=== PATIENT | female | born 2000 | race Hispanic/Latino ===

== ENCOUNTER 2019-06-20 14:22 | Emergency (ER) | payer OTHER ==
--- OUTSIDE RECORDS SUMMARY | 2019-06-20 14:23 | XMS REPORT ---
:2000 [facility] Address [address] [place] [address] Dr. Dos Santos [address] [place] [id number] Care Team Providers Name Role Phone Unavailable Unavailable Unavailable Problems This patient has no known problems. Allergies, Adverse Reactions, Alerts This patient has no known allergies or adverse reactions. Medications This patient has no known medications.
[2019-06-20] MEDS ORDERED: ONDANSETRON 4 MG/2 ML VIAL ONE (16:14)
[2019-06-20 16:21] LABS: Absolute Lymphocytes (CBC) 2.3 K/uL (0.7-4.9); Basophils % 0.6 % (0-1.3); Hematocrit 40.1 % (36.0-45.0); Lymphocytes % 26.8 % (15.3-44.8); MPV 8.7 fL (7.6-11.3); RBC Red Blood Cell Count 4.38 M/uL (3.86-4.86)
[2019-06-20 16:28] LABS: Urine Blood NEGATIVE (NEG); Urine Glucose NEGATIVE (NEG); Urine Protein NEGATIVE (NEG); Urine Specific Gravity 1.025 (1.005-1.030)
[2019-06-20 16:37] LABS: BUN Blood Urea Nitrogen 10 mg/dL (7-18); Bicarbonate 28 mmol/L (21-32); Glucose Level 73 mg/dL (74-106); Potassium 3.5 mmol/L (3.5-5.1); Sodium Level 138 mmol/L (136-145)
[2019-06-20 16:44] LABS: HCG, Quantitative < 1 mIU/mL (1-3)
--- NOTE | 2019-06-20 17:47 | RAD REPORT ---
EXAM DESCRIPTION: CT - Abdomen Pelvis W Contrast - 06/20/2019 5:16 pm CLINICAL HISTORY: Abdominal pain COMPARISON: December 2017 TECHNIQUE: Computed axial tomography of the abdomen pelvis was obtained. 100 cc Isovue-300 was admin istered intravenously. Oral contrast was not requested which limits evaluation of bowel. All CT scans are performed using dose optimization technique as appropriate and may include automated exposure control or mA/KV adjustment according to patient size. FINDINGS: Fatty liver Spleen, pancreas, adrenal and left kidney appear unremarkable. 2 millimeter nonobstructing right regina l calculus There is no evidence of diverticulitis. 5.5 centimeter right ovarian cyst with a small amount of free fluid IMPRESSION: 5.5 centimeter right ovarian cyst with a small amount of free fluid . Follow up ultrasou nd in 6 weeks recommended to assess stability/resolution
--- NOTE | 2019-06-20 18:58 | EDPHYS ---
Physician Documentation [facility] Name: Lalita Gonzalez Age: 18 yrs Sex: Female : 2000 Arrival Date: 06/20/2019 Time: 14:25 Bed 11 Private MD: ED Physician Ever Hoover HPI: 06/21 01:31 This 18 yrs old Female presents to ER via Ambulatory with complaints of kb Abdominal Pain. 01:31 The patient presents with abdominal pain right lower quadrant. Onset: The kb symptoms/episode began/occurred 5 day(s) ago. The symptoms do not radiate. Associated signs and symptoms: Pertinent positives: breast tenderness. The symptoms are described as constant. Modifying factors: The symptoms are alleviated by nothing, the symptoms are aggravated by nothing. Severity of pain: At its worst the pain was moderate in the emergency department the pain is unchanged. The patient has not experienced similar symptoms in the past. The patient has been recently seen by a physician: the patient's primary care provider, with similar presenting complaints, and was sent to the [facility] Emergency Department for further evaluation. Pt reports RLQ pain that started 5 days ago. States she was going to see if it would just go away, but it didn't so she went to her dr. States her Dr sent her here because he said it was either her appendix or . 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 - Social history:: Smoking status: Patient/guardian denies using tobacco. - Ebola Screening: : No symptoms or risks identified at this time. ROS: 06/21 01:31 Constitutional: Negative for fever, chills, and weight loss, ENT: Negative for injury, kb pain, and discharge, Neck: Negative for injury, pain, and swelling, Cardiovascular: Negative for chest pain, palpitations, and edema, Respiratory: Negative for shortness of breath, cough, wheezing, and pleuritic chest pain, Back: Negative for injury and pain, : Negative for injury, bleeding, discharge, and swelling, MS/Extremity: Negative for injury and deformity, Skin: Negative for injury, rash, and discoloration, Neuro: Negative for headache, weakness, numbness, tingling, and seizure. Abdomen/GI: Positive for abdominal pain. Exam: :31 Constitutional: This is a well developed, well nourished patient who is awake, alert, kb and in no acute distress. Head/Face: Normocephalic, atraumatic. Neck: Trachea midline, no thyromegaly or masses palpated, and no cervical lymphadenopathy. Supple, full range of motion without nuchal rigidity, or vertebral point tenderness. No Meningismus. Chest/axilla: Normal chest wall appearance and motion. Nontender with no deformity. No lesions are appreciated. Cardiovascular: Regular rate and rhythm with a normal S1 and S2. No gallops, murmurs, or rubs. Normal PMI, no JVD. No pulse deficits. Respiratory: Lungs have equal breath sounds bilaterally, clear to auscultation and percussion. No rales, rhonchi or wheezes noted. No increased work of breathing, no retractions or nasal flaring. Back: No spinal tenderness. No costovertebral tenderness. Full range of motion. Skin: Warm, dry with normal turgor. Normal color with no rashes, no lesions, and no evidence of cellulitis. MS/ Extremity: Pulses equal, no cyanosis. Neurovascular intact. Full, normal range of motion. Neuro: Awake and alert, GCS 15, oriented to person, place, time, and situation. Cranial nerves II-XII grossly intact. Motor strength 5/5 in all extremities. Sensory grossly intact. Cerebellar exam normal. Normal gait. :31 Abdomen/GI: Inspection: abdomen appears normal, Bowel sounds: normal, in all quadrants, Palpation: soft, in all quadrants, moderate abdominal tenderness, in the right lower quadrant and left lower quadrant. Vital Signs: 06/20 14:42 BP 140 / 77; Pulse 87; Resp 16; Temp 98.5; Pulse Ox 99% on R/A; Weight 65.77 kg; Height hb 5 ft. 1 in. (154.94 cm); Pain 8/10; 15:33 BP 139 / 89; Pulse 95; Resp 18; Pulse Ox 100% on R/A; aj1 19:32 BP 122 / 78; Pulse 70; Resp 16; Pulse Ox 99% on R/A; aj1 14:42 Body Mass Index 27.40 (65.77 kg, 154.94 cm) hb MDM: 15:23 Patient medically screened. kb 06/21 01:33 Data reviewed: vital signs, nurses notes. Data interpreted: Pulse oximetry: on room air kb is 99 %. Interpretation: normal. Counseling: I had a detailed discussion with the patient and/or guardian regarding: the historical points, exam findings, and any diagnostic results supporting the discharge/admit diagnosis, lab results, radiology results, the need for outpatient follow up, an OB/Gyne specialist, to return to the emergency department if symptoms worsen or persist or if there are any questions or concerns that arise at home. 06/20 15:46 Order name: Basic Metabolic Panel; Complete Time: 16:49 kb 06/20 15:46 Order name: CBC with Diff; Complete Time: 16:31 kb 06/20 15:46 Order name: Quantitative Hcg; Complete Time: 16:49 kb 06/20 16:08 Order name: Urine Dipstick--Ancillary (enter results); Complete Time: 16:31 bd 06/20 16:08 Order name: Urine --Ancillary (enter results); Complete Time: 16:31 bd 06/20 16:49 Order name: CT Abd/Pelvis - IV Contrast Only; Complete Time: 17:49 kb 06/20 15:38 Order name: Urine Dipstick-Ancillary (obtain specimen); Complete Time: 15:48 kb 06/20 15:38 Order name: Urine Test (obtain specimen); Complete Time: 15:48 kb 06/20 15:46 Order name: IV Saline Lock; Complete Time: 16:28 kb 06/20 15:46 Order name: Labs collected and sent; Complete Time: 16:28 kb Administered Medications: No medications were administered Disposition: 07:57 Co-signature as Attending Physician, Ever Hoover MD I agree with the assessment and wa plan of care. Disposition: 06/20/19 18:50 Discharged to Home. Impression: Other ovarian cysts. - Condition is Stable. - Discharge Instructions: Ovarian Cyst, [id number]. - Prescriptions for Diclofenac Sodium 75 mg Oral Tablet, Delayed Release (E.C.) - take 1 tablet by ORAL route 2 times per day As needed; 30 tablet. - Medication Reconciliation Form, Thank You Letter, Antibiotic Education, Prescription Opioid Use form. - Follow up: Emergency Department; When: As needed; Reason: Worsening of condition. Follow up: Private Physician; When: 2 - 3 days; Reason: Recheck today's complaints, Continuance of care, Re-evaluation by your physician. Signatures: Dispatcher [employer] EDMS Sachi Fuentes, FATIMAH OAKLEY-Evelyne Perales RN RN aj1 Narcisa Briceño RN RN Ever Hoover MD MD in Corrections: (The following items were deleted from the chart) 06/20 19:33 18:50 06/20/2019 18:50 Discharged to Home. Impression: Other ovarian cysts. Condition aj1 is Stable. Forms are Medication Reconciliation Form, Thank You Letter, Antibiotic Education, Prescription Opioid Use. Follow up: Emergency Department; When: As needed; Reason: Worsening of condition. Follow up: Private Physician; When: 2 - 3 days; Reason: Recheck today's complaints, Continuance of care, Re-evaluation by your physician. kb
--- NOTE | 2019-06-20 18:58 | ER ---
Nurse's Notes [facility] Name: Lalita Gonzalez Age: 18 yrs Sex: Female : 2000 Arrival Date: 06/20/2019 Time: 14:25 Bed 11 Private MD: Diagnosis: Other ovarian cysts Presentation: 06/20 14:40 Presenting complaint: Abdominal pain x 5 days. Pt report pain started in the RLQ, now hb pain is diffuse. Denies N/V/D/fever. LMP 05/31. Transition of care: patient was not received from another setting of care. Onset of symptoms was June 16, 2019. Risk Assessment: Do you want to hurt yourself or someone else? Patient reports no desire to harm self or others. Initial Sepsis Screen: Does the patient meet any 2 criteria? No. Patient's initial sepsis screen is negative. Does the patient have a suspected source of infection? No. Patient's initial sepsis screen is negative. Care prior to arrival: None. 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 - Social history:: Smoking status: Patient/guardian denies using tobacco. - Ebola Screening: : No symptoms or risks identified at this time. Screenin:33 Abuse screen: Denies threats or abuse. Denies injuries from another. Nutritional aj1 screening: No deficits noted. Tuberculosis screening: No symptoms or risk factors identified. 19:33 Fall Risk None identified. aj1 Assessment: 15:33 General: Appears in no apparent distress. comfortable, Behavior is calm, cooperative, aj1 appropriate for age. Pain: Complains of pain in right lower quadrant Pain does not radiate. Pain currently is 7 out of 10 on a pain scale. Neuro: Level of Consciousness is awake, alert, obeys commands, Oriented to person, place, time, situation. Cardiovascular: Patient's skin is warm and dry. Respiratory: Airway is patent Respiratory effort is even, unlabored, Respiratory pattern is regular, symmetrical. GI: Abdomen is non-distended, Bowel sounds present X 4 quads. Abd is soft X 4 quads Abdomen is tender to palpation in right lower quadrant. : No signs and/or symptoms were reported regarding the genitourinary system. EENT: No signs and/or symptoms were reported regarding the EENT system. Derm: No signs and/or symptoms reported regarding the dermatologic system. Skin is pink, warm \T\ dry. normal. Musculoskeletal: No signs and/or symptoms reported regarding the musculoskeletal system. Circulation, motion, and sensation intact. 16:37 Reassessment: Patient appears in no apparent distress at this time. No changes from aj1 previously documented assessment. Patient and/or family updated on plan of care and expected duration. Pain level reassessed. Patient is alert, oriented x 3, equal unlabored respirations, skin warm/dry/pink. 17:30 Reassessment: Patient and/or family updated on plan of care and expected duration. Pain aj1 level reassessed. General: Appears in no apparent distress. comfortable, Behavior is calm, cooperative, appropriate for age. Neuro: Level of Consciousness is awake, alert, obeys commands, Oriented to person, place, time, situation. Cardiovascular: Patient's skin is warm and dry. Respiratory: Airway is patent Respiratory effort is even, unlabored, Respiratory pattern is regular, symmetrical. GI: Abdomen is flat, non-distended. Derm: No signs and/or symptoms reported regarding the dermatologic system. Skin is pink, warm \T\ dry. normal. Musculoskeletal: No signs and/or symptoms reported regarding the musculoskeletal system. Circulation, motion, and sensation intact. 18:15 Reassessment: Patient appears in no apparent distress at this time. No changes from aj1 previously documented assessment. Patient and/or family updated on plan of care and expected duration. Pain level reassessed. Patient is alert, oriented x 3, equal unlabored respirations, skin warm/dry/pink. 19:31 Reassessment: Patient appears in no apparent distress at this time. No changes from aj1 previously documented assessment. Patient and/or family updated on plan of care and expected duration. Pain level reassessed. Patient is alert, oriented x 3, equal unlabored respirations, skin warm/dry/pink. Vital Signs: 14:42 BP 140 / 77; Pulse 87; Resp 16; Temp 98.5; Pulse Ox 99% on R/A; Weight 65.77 kg; Height hb 5 ft. 1 in. (154.94 cm); Pain 8/10; 15:33 BP 139 / 89; Pulse 95; Resp 18; Pulse Ox 100% on R/A; aj1 19:32 BP 122 / 78; Pulse 70; Resp 16; Pulse Ox 99% on R/A; aj1 14:42 Body Mass Index 27.40 (65.77 kg, 154.94 cm) hb ED Course: 14:25 Patient arrived in ED. mr 14:42 Triage completed. hb 14:43 Arm band placed on. hb 15:22 Sachi Fuentes FNP-C is PHCP. kb 15:22 Ever Hoover MD is Attending Physician. kb 15:33 Evelyne Bonds, RN is Primary Nurse. aj1 15:33 Patient has correct armband on for positive identification. aj1 15:33 No provider procedures requiring assistance completed. aj1 16:28 Initial lab(s) drawn, by me, sent to lab. Inserted saline lock: 22 gauge in left aj1 antecubital area, using aseptic technique. Blood collected. 17:13 CT completed. Patient tolerated procedure well. Patient moved to CT. Patient moved back me from CT. 17:17 CT Abd/Pelvis - IV Contrast Only In Process Unspecified. EDMS 19:32 IV discontinued, intact, bleeding controlled, No redness/swelling at site. Pressure aj1 dressing applied. Administered Medications: No medications were administered Outcome: 18:50 Discharge ordered by MD. kb 19:32 Discharged to home ambulatory. aj1 19:32 Condition: good 19:32 Discharge instructions given to patient, Instructed on discharge instructions, follow up and referral plans. medication usage, Demonstrated understanding of instructions, follow-up care, medications, Prescriptions given X 1. 19:33 Patient left the ED. aj1 Signatures: Dispatcher [employer] EDMS Sachi Fuentes FNP-C FNP-Evelyne Perales, RN RN [facility] Maria De Jesus Benavides Narcisa Briceño RN RN Davidson Leyva Corrections: (The following items were deleted from the chart) 14:43 14:40 Presenting complaint: Abdominal pain x 5 days. Pt report pain started in the RLQ, hb now pain is diffuse. Denies N/V/D/fever. LMP 05/01 hb 15:37 15:33 Pain: Complains of pain in left lower quadrant Pain does not radiate. Pain aj1 currently is 7 out of 10 on a pain scale. aj1 15:37 15:33 GI: Abdomen is non-distended, Bowel sounds present X 4 quads. Abd is soft X 4 aj1 quads Abdomen is tender to palpation in left lower quadrant aj1
== END 2019-06-20 19:33 | disposition home or self-care (01) ==
LOC: ER 14:22
DX: N83.299 Other ovarian cyst, unspecified side (principal)
CPT/HCPCS: 85025; 80048; 36415; 81025; 84702; 81003; 74177; 99284; Q9967; J2405

== ENCOUNTER 2019-12-31 17:27 | Emergency (ER) | payer OTHER, SELFPAY ==
--- OUTSIDE RECORDS SUMMARY | 2019-12-31 17:29 | XMS REPORT ---
:2000 [facility] Address [address] [place] [address] Dr. Dos Santos [address] [place] [id number] Care Team Providers Name Role Phone Unavailable Unavailable Unavailable Problems This patient has no known problems. Allergies, Adverse Reactions, Alerts This patient has no known allergies or adverse reactions. Medications This patient has no known medications.
--- NOTE | 2019-12-31 19:07 | ER ---
Nurse's Notes [facility] Name: Lalita Gonzalez Age: 19 yrs Sex: Female : 2000 Arrival Date: 12/31/2019 Time: 17:30 Bed 18 Private MD: Ever Oro E Diagnosis: Acute laryngitis Presentation: 12/31 17:51 Presenting complaint: Patient states: Sore throat, ear pain, body aches, and fever aj1 since Thursday. Transition of care: patient was not received from another setting of care. Onset of symptoms was December 2019. Risk Assessment: Do you want to hurt yourself or someone else? Patient reports no desire to harm self or others. Initial Sepsis Screen: Does the patient meet any 2 criteria? No. Patient's initial sepsis screen is negative. Does the patient have a suspected source of infection? Yes: Other: fever sore throat body aches. Care prior to arrival: None. 17:51 Method Of Arrival: Ambulatory aj1 17:51 Acuity: ROSSI 4 aj1 Triage Assessment: 17:52 General: Appears in no apparent distress. uncomfortable, Behavior is calm, cooperative, aj1 appropriate for age. Pain: Complains of pain in left aspect of posterior pharynx and right aspect of posterior pharynx. EENT: Reports sore throat, ear pain. Neuro: Level of Consciousness is awake, alert, obeys commands. Cardiovascular: Patient's skin is warm and dry. Respiratory: Airway is patent Respiratory effort is even, unlabored, Respiratory pattern is regular, symmetrical. 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 - Coronavirus screen:: The patient has NOT traveled to [place] in the past 14 days. - Social history:: Smoking status: Patient/guardian denies using tobacco. - Ebola Screening: : Patient denies travel to an Ebola-affected area in the 21 days before illness onset. Screenin:07 Abuse screen: Denies threats or abuse. Nutritional screening: No deficits noted. tw2 Tuberculosis screening: No symptoms or risk factors identified. Fall Risk None identified. Assessment: 18:07 General: Appears in no apparent distress. Behavior is calm, cooperative, appropriate tw2 for age. Pain: Complains of pain in right ear, left ear, uvula, left aspect of posterior pharynx and right aspect of posterior pharynx. Neuro: Level of Consciousness is awake, alert, obeys commands, Oriented to person, place, time, situation. Cardiovascular: Patient's skin is warm and dry. Respiratory: Reports cough that is Airway is patent Respiratory effort is even, unlabored, Respiratory pattern is regular, symmetrical. GI: No signs and/or symptoms were reported involving the gastrointestinal system. Abdomen is flat. : No signs and/or symptoms were reported regarding the genitourinary system. EENT: Reports nasal congestion nasal discharge pain in left ear and right ear when swallowing. Derm: No signs and/or symptoms reported regarding the dermatologic system. Musculoskeletal: "body aches". 19:00 Reassessment: Patient appears in no apparent distress at this time. Patient and/or hb family updated on plan of care and expected duration. Pain level reassessed. Patient is alert, oriented x 3, equal unlabored respirations, skin warm/dry/pink. Vital Signs: 17:52 BP 139 / 97; Pulse 86; Resp 18; Temp 98.1; Pulse Ox 98% on R/A; Weight 111.13 kg (R); aj1 Height 5 ft. 1 in. (154.94 cm) (R); Pain 8/10; 19:00 BP 126 / 80; Pulse 82; Resp 16 S; Temp 97.8; Pulse Ox 99% ; Pain 4/10; hb 17:52 Body Mass Index 46.29 (111.13 kg, 154.94 cm) aj1 ED Course: 17:30 Patient arrived in ED. rg4 17:30 Ever Oro MD is Private Physician. rg4 17:52 Triage completed. aj1 17:52 Arm band placed on Patient placed in waiting room, Patient notified of wait time. aj1 18:06 Anabella Foote FNP-C [facility]. snw 18:06 Jaime Quiroga MD is Attending Physician. snw 18:07 Cornelia Costa RN is Primary Nurse. tw2 18:07 Bed in low position. Call light in reach. Adult w/ patient. tw2 19:00 Report given to AV Brewster. tw2 19:05 Ever Oro MD is Referral Physician. snw 19:25 No provider procedures requiring assistance completed. Patient did not have IV access hb during this emergency room visit. Administered Medications: 19:24 Drug: Decadron 8 mg Route: PO; hb 19:26 Follow up: Response: Medication administered at discharge. hb 19:24 Drug: Phenergan 25 mg Route: PO; hb 19:26 Follow up: Response: Medication administered at discharge. hb Outcome: 19:05 Discharge ordered by . snw 19:25 Discharged to home ambulatory, with significant other. hb 19:25 Condition: stable 19:25 Discharge instructions given to patient, Instructed on discharge instructions, follow up and referral plans. medication usage, Demonstrated understanding of instructions, follow-up care, medications, Prescriptions given X 1. 19:27 Patient left the ED. hb Signatures: Evelyne Bonds RN RN aj1 Anabella Foote, JEWEL HOLE DRILLER-C JEWEL HOLE DRILLER-Csnw Narcisa Briceño, RN AV Cornelia Costa RN RN tw2 Soila Alfaro rg4
--- NOTE | 2019-12-31 19:07 | EDPHYS ---
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 - Coronavirus screen:: The patient has NOT traveled to [place] in the past 14 days. - Social history:: Smoking status: Patient/guardian denies using tobacco. - Ebola Screening: : Patient denies travel to an Ebola-affected area in the 21 days before illness onset. ROS: 19:27 Constitutional: Negative for fever, chills, and weight loss, Eyes: Negative for injury, snw pain, redness, and discharge, Neck: Negative for injury, pain, and swelling, Cardiovascular: Negative for chest pain, palpitations, and edema, Respiratory: Negative for shortness of breath, cough, wheezing, and pleuritic chest pain, Abdomen/GI: Negative for abdominal pain, nausea, vomiting, diarrhea, and constipation, Back: Negative for injury and pain, : Negative for injury, bleeding, discharge, and swelling, MS/Extremity: Negative for injury and deformity, Skin: Negative for injury, rash, and discoloration, Neuro: Negative for headache, weakness, numbness, tingling, and seizure, Psych: Negative for depression, anxiety, suicide ideation, homicidal ideation, and hallucinations. 19:27 ENT: Positive for sinus congestion, sore throat. Exam: 19:09 Constitutional: This is a well developed, well nourished patient who is awake, alert, snw and in no acute distress. Head/Face: Normocephalic, atraumatic. Eyes: Pupils equal round and reactive to light, extra-ocular motions intact. Lids and lashes normal. Conjunctiva and sclera are non-icteric and not injected. Cornea within normal limits. Periorbital areas with no swelling, redness, or edema. Neck: Trachea midline, no thyromegaly or masses palpated, and no cervical lymphadenopathy. Supple, full range of motion without nuchal rigidity, or vertebral point tenderness. No Meningismus. Chest/axilla: Normal chest wall appearance and motion. Nontender with no deformity. No lesions are appreciated. Cardiovascular: Regular rate and rhythm with a normal S1 and S2. No gallops, murmurs, or rubs. Normal PMI, no JVD. No pulse deficits. Respiratory: Lungs have equal breath sounds bilaterally, clear to auscultation and percussion. No rales, rhonchi or wheezes noted. No increased work of breathing, no retractions or nasal flaring. Abdomen/GI: Soft, non-tender, with normal bowel sounds. No distension or tympany. No guarding or rebound. No evidence of tenderness throughout. Back: No spinal tenderness. No costovertebral tenderness. Full range of motion. Skin: Warm, dry with normal turgor. Normal color with no rashes, no lesions, and no evidence of cellulitis. MS/ Extremity: Pulses equal, no cyanosis. Neurovascular intact. Full, normal range of motion. Neuro: Awake and alert, GCS 15, oriented to person, place, time, and situation. Cranial nerves II-XII grossly intact. Motor strength 5/5 in all extremities. Sensory grossly intact. Cerebellar exam normal. Normal gait. Psych: Awake, alert, with orientation to person, place and time. Behavior, mood, and affect are within normal limits. 19:09 ENT: External ear(s): are unremarkable, Ear canal(s): are normal, TM's: are normal, Nose: is normal, Mouth: is normal, Posterior pharynx: Tonsils: bilaterally enlarged, erythema, that is mild, Voice: is hoarse. Vital Signs: 17:52 BP 139 / 97; Pulse 86; Resp 18; Temp 98.1; Pulse Ox 98% on R/A; Weight 111.13 kg (R); aj1 Height 5 ft. 1 in. (154.94 cm) (R); Pain 8/10; 19:00 BP 126 / 80; Pulse 82; Resp 16 S; Temp 97.8; Pulse Ox 99% ; Pain 4/10; hb 17:52 Body Mass Index 46.29 (111.13 kg, 154.94 cm) [facility] MDM: 18:06 Patient medically screened. ashley 19:08 Data reviewed: vital signs, nurses notes. Data interpreted: Pulse oximetry: on room air snw is 98 %. Interpretation: normal. Counseling: I had a detailed discussion with the patient and/or guardian regarding: the historical points, exam findings, and any diagnostic results supporting the discharge/admit diagnosis, the presence of at least one elevated blood pressure reading (>120/80) during this emergency department visit, lab results, the need for outpatient follow up, to return to the emergency department if symptoms worsen or persist or if there are any questions or concerns that arise at home. Special discussion: I have referred the patient to see his PCP for further evaluation of high blood pressure. Based on the history and exam findings, there is no indication for further emergent testing or inpatient evaluation. I discussed with the patient/guardian the need to see the primary care provider for further evaluation of the symptoms. 12/31 17:54 [facility] name: [facility] 12/31 17:54 Order name: [facility] 12/31 18:32 Order name: Influenza Screen (A ; Complete Time: 18:35 EDMS 12/31 18:32 Order name: Group A Streptococcus Rapid Sc; Complete Time: 18:35 EDMS Administered Medications: 19:24 Drug: Decadron 8 mg Route: PO; hb 19:26 Follow up: Response: Medication administered at discharge. hb 19:24 Drug: Phenergan 25 mg Route: PO; hb 19:26 Follow up: Response: Medication administered at discharge. Disposition: 12/31/19 19:05 Discharged to Home. Impression: Acute laryngitis. - Condition is Stable. - Discharge Instructions: Hypertension, Laryngitis, Upper Respiratory Infection, Adult, Form - Blood Pressure Record Sheet. - Prescriptions for Prednisone 20 mg Oral Tablet - take 2 tablet by ORAL route once daily for 5 days; 10 tablet. - Medication Reconciliation Form, Thank You Letter, Antibiotic Education, Prescription Opioid Use, Work release form form. - Follow up: Emergency Department; When: As needed; Reason: Worsening of condition. Follow up: Ever Oro MD; When: 2 - 3 days; Reason: Recheck today's complaints, Continuance of care, Re-evaluation by your physician. Addendum: 01/02/2020 08:27 Co-signature as Attending Physician, Jaime Quiroga MD I agree with the assessment and c carmen plan of care. Signatures: Dispatcher [employer] Evelyne Lowery, RN RN aj1 Jaime Quiroga MD MD cha Therrien, Shelly, [employer]ORER-C [employer]ER-Csnw Narcisa Briceño, RN RN hb Corrections: (The following items were deleted from the chart) 12/31 19:27 19:05 12/31/2019 19:05 Discharged to Home. Impression: Acute laryngitis. Condition is hb Stable. Forms are Work release form, Medication Reconciliation Form, Thank You Letter, Antibiotic Education, Prescription Opioid Use. Follow up: Emergency Department; When: As needed; Reason: Worsening of condition. Follow up: Ever Oro; When: 2 - 3 days; Reason: Recheck today's complaints, Continuance of care, Re-evaluation by your physician. snw
[2019-12-31] MEDS ORDERED: dexAMETHasone 4 MG TAB ONE (19:22)
[2019-12-31] MEDS ORDERED: PROMETHAZINE 25 MG TABLET ONE (19:23)
== END 2019-12-31 19:27 | disposition home or self-care (01) ==
LOC: ER 17:27
DX: J04.0 Acute laryngitis (principal)
CPT/HCPCS: 87070; 87081; 87804; 99283; J8540; Q0169

== ENCOUNTER 2020-01-04 16:04 | Emergency (ER) | payer SELFPAY ==
--- OUTSIDE RECORDS SUMMARY | 2020-01-04 16:06 | XMS REPORT ---
:2000 [facility] Address [address] [place] [address] Dr. Espinosa. [address] [place] [id number] Care Team Providers Name Role Phone Unavailable Unavailable Unavailable Problems This patient has no known problems. Allergies, Adverse Reactions, Alerts This patient has no known allergies or adverse reactions. Medications This patient has no known medications.
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
[2020-01-04] MEDS ORDERED: IBUPROFEN 400 MG TAB ONE (17:19)
== END 2020-01-04 17:21 | disposition home or self-care (01) ==
LOC: ER 16:04
DX: R51 Headache (principal); Z04.1 Encounter for examination and observation following transport accident
CPT/HCPCS: 70450; 99283